=== PATIENT | male | born 1985 | race Caucasian/White ===

== ENCOUNTER 2021-09-24 15:53 | Emergency (ER) | payer OTHER ==
[~2021-09-24] VITALS: Ht 180.3 cm; Wt 81.6 kg
[2021-09-24 16:08] VITALS: BP 138/90
--- NOTE | 2021-09-24 17:44 | NUR ---
PT TAKEN FROM AMBULANCE 1 TO BED 12 VIA [facility]
[2021-09-24] MEDS ORDERED: MAGNESIUM OXIDE 400 MG TAB PO ONE (17:55)
[2021-09-24] MEDS ORDERED: FOLIC ACID 1 MG TAB PO ONE (17:55)
[2021-09-24] MEDS ORDERED: NACL 0.9% 1,000 ML IV ONE ×2 (17:55→23:55)
[2021-09-24] MEDS ORDERED: MULTIVITAMIN 1 TAB PO SCH (17:55)
--- NOTE | 2021-09-24 17:56 | NUR ---
PT PLACED INTO GOWN AND PLACED ON VEST PRESSER
--- NOTE | 2021-09-24 18:00 | NUR ---
XRAY AT PATIENT BEDSIDE
--- NOTE | 2021-09-24 18:26 | NUR ---
36 Y MALE BIBA FROM ALLEY DUE TO ALOC AND ETOH. PER MEDICS PATIENT WAS FOUND UNCONSCIOUS. 2MG OF NARCAN GIVEN IN FIELD VIA IN AND PATIENT HAS BECOME MORE AROUSABLE. PT CURRENT GCS 9 AT THIS TIME. PUPILS SLUGGISH AND REACTIVE. BREATH SOUNDS CLEAR. PT SLURRING WORDS AT THIS TIME AND CONFUSED. ALCOHOL NOTED ON PATIENT BREATH. NO SIGNS OF DISTRESS, EQUAL CHREST RISE AND FALL NOTED WITH EQUAL RESPIRATIONS. SKIN DRY AND INTACT PMH: DEPRESSION, ANXIETY, SCHIZOPRENIA NKA
[2021-09-24] MEDS ORDERED: NALOXONE 0.4 MG/ML VIAL ONE (18:40)
[2021-09-24] MEDS ORDERED: NALOXONE 0.4 MG/ML VIAL IVP ONE (18:40)
[2021-09-24] MEDS ORDERED: MULTIVITAMIN-12 10 ML, THIAMINE 100 MG, MAGNESIUM SULFATE 50% 2,000 MG, FOLIC ACID 1 MG... IV STA ×5 (18:41)
--- NOTE | 2021-09-24 18:45 | NUR ---
URINE AND BLOOD HANDED TO RN RESEARCH BEDSIDE
--- NOTE | 2021-09-24 18:46 | NUR ---
# 16 FR Urinary catheter inserted utilizing sterile technique. Immediate return of 10 ml YELLOW urine noted. Urine sample collected and sent to lab. Pt tolerated procedure WELL.
[2021-09-24 18:53] LABS: APPEARANCE,URINE CLEAR (CLEAR); BASOPHILS % (AUTO) 0.6 % (0.0-2.0); BILIRUBIN,URINE NEGATIVE (NEGATIVE); BLOOD, URINE NEGATIVE (NEGATIVE); COLOR,URINE YELLOW (YELLOW); EOSINOPHILS # (AUTO) 0.3 K/uL (0-0.4); HEMATOCRIT 41.7 % (36-52); LEUKOCYTE ESTERASE ,URINE NEGATIVE (NEGATIVE); LYMPHOCYTES # (AUTO) 1.7 K/uL (2.0-11.5); MEAN CORPUSCULAR HEMOGLOBIN 33 pg (27-31); MEAN CORPUSCULAR HGB CONC 34 g/dL (33-37); MEAN CORPUSCULAR VOLUME 98.8 fL (80-94); MONOCYTES # (AUTO) 0.7 K/uL (0.8-1.0); MONOCYTES % (AUTO) 10.8 % (1.7-9.3); NEUTROPHILS # (AUTO) 3.7 K/uL (1.8-7.7); NEUTROPHILS % (AUTO) 58.6 % (42.2-75.2); NITRITE, URINE NEGATIVE (NEGATIVE); PLATELET COUNT (AUTO) 341 K/uL (140-450); RED BLOOD CELL COUNT(AUTO) 4.22 MIL/uL (4.20-6.10); RED CELL DISTRIBUTION WIDTH 15.8 % (11.6-13.7); UGLUCOSE NEGATIVE (NEGATIVE); WHITE BLOOD COUNT (AUTO) 6.4 K/uL (4.8-10.8)
--- NOTE | 2021-09-24 19:00 | NUR ---
PT TAKEN TO CT VIA [facility]
[2021-09-24] MEDS ORDERED: MULTIVITAMIN-12 10 ML VIAL IV ONE (19:04)
--- NOTE | 2021-09-24 19:15 | NUR ---
PT RETURNED TO BED [address] [facility]
--- NOTE | 2021-09-24 19:19 | NUR ---
Pt report given to JESSE CARRERA. Transfer of care at this time.
--- NOTE | 2021-09-24 19:19 | NUR ---
Received report from Teresa MOLINA for continuation of care
[2021-09-24 19:22] LABS: ALBUMIN 3.5 g/dL (3.4-5.0); ANION GAP 12.8 (8-16); CARBON DIOXIDE 26.3 mmol/L (21-32); CREATININE 0.9 mg/dL (0.6-1.3); POTASSIUM 4.1 mmol/L (3.5-5.1); TOTAL BILIRUBIN 0.1 mg/dL (0.0-1.0)
[2021-09-24 19:37] LABS: CANNABINOID, URINE POSITIVE ng/mL (NEG <=50)
--- NOTE | 2021-09-24 19:46 | NUR ---
Patient appears to be resting comfortably in bed-- eyes closed and in low fowlers. Vital Signs within normal limits. Respirations even and unlabored. No signs of distress noted. Patient currently receiving bolus of fluid in the right ac. Safety measures are in place, attached to monitors and will continue to monitor patient.
--- NOTE | 2021-09-24 23:02 | NUR ---
Patient appears to be resting comfortably in bed-- eyes closed and in low fowlers. Vital Signs within normal limits. Respirations even and unlabored. No signs of distress noted. Patient receiving banana bag in the right ac. Safety measures are in place, attached to monitors and will continue to monitor patient.
--- NOTE | 2021-09-25 02:02 | NUR ---
IV removed, catheter intact and site benign. Applied folded 4x4 gauze and tape to stop bleeding.
[2021-09-25 02:14] VITALS: BP 104/84
--- NOTE | 2021-09-25 02:15 | NUR ---
Patient discharged with v/s stable. Written and verbal after care instructions given and explained. Patient verbalized understanding. Ambulatory with steady gait. All questions addressed prior to discharge. Advised to follow up with PMD.
[2021-09-25 22:10] LABS: BARBITURATE, URINE NEGATIVE ng/ml (NEG <=200); BENZODIAZEPINE, URINE NEGATIVE ng/mL (NEG <=200); COCAINE, URINE NEGATIVE ng/mL (NEG <=300); OPIATE, URINE NEGATIVE ng/mL (NEG <=2000); PHENCYCLIDINE SCREEN,URINE NEGATIVE ng/mL (NEG <=25)
== END 2021-09-25 02:15 | disposition home or self-care (01) ==
LOC: MED 15:53
DX: T43.621A Poisoning by amphetamines, accidental (unintentional), initial encounter (principal); R41.82 Altered mental status, unspecified; F31.9 Bipolar disorder, unspecified; F20.9 Schizophrenia, unspecified
CPT/HCPCS: 36415; 70450; 71045; 80053; 80305; 81003; 85025; 96361; 96365; 96366; 96375; 99285; A9153; J2310; Q0092; J7030